=== PATIENT | male | born 1990 | race Two or more races ===

== ENCOUNTER 2019-10-26 14:08 | Emergency (ER) | payer OTHER, SELFPAY ==
[~2019-10-26] VITALS: Ht 182.9 cm; Wt 83.8 kg
[~2019-10-26 14:08] MED LIST: NO CURRENT MEDS
[2019-10-26 14:09] VITALS: BP 130/81
== END 2019-10-26 15:55 | disposition left against medical advice (07) ==
LOC: M ED 14:08
DX: Z53.21 Procedure and treatment not carried out due to patient leaving prior to being seen by health care provider (principal)

== ENCOUNTER → 2019-12-13 | Outpatient (CLI) | payer OTHER ==
[~2019-12-13] MED LIST changes: +PRIL20TA2 PO
== END ==
LOC: M LABSMTC 12:42
PROVIDERS: ATTEND Anesthesiology
DX: Z01.812 Encounter for preprocedural laboratory examination (principal); Z20.828 Contact with and (suspected) exposure to other viral communicable diseases
CPT/HCPCS: C9803; U0003

== ENCOUNTER 2019-12-18 09:02 | Day surgery (SDC) | payer OTHER ==
[~2019-12-18] VITALS: Ht 180.3 cm; Wt 85.7 kg
[2019-12-18] MEDS ORDERED: MIDAZOLAM INJ 2MG/2ML VIAL (J2250 PER 1MG) As Ordered ONE (09:42)
[2019-12-18] MEDS ORDERED: fentaNYL 100 MCG/2 ML INJECTION (J3010) As Ordered ONE ×2 (09:43→11:33)
[2019-12-18] MEDS ORDERED: dexameTHASONE 4 MG/ML 1ML VIAL (J1100 PER 1MG) As Ordered ONE (09:44)
[2019-12-18] MEDS ORDERED: ROCURONIUM BROMIDE 50 MG/5 ML VIAL As Ordered ONE (09:44)
[2019-12-18] MEDS ORDERED: METHYLENE BLUE 0.5% (5MG/ML) 10 ML AMP (PROVAYBLUE) As Ordered ONE (09:44)
[2019-12-18] MEDS ORDERED: EPINEPHrine 1MG/ML INJ 30ML MD-VIAL As Ordered ONE (09:44)
[2019-12-18] MEDS ORDERED: LIDOCAINE W/EPINEPHRINE 1% 20ML VIAL As Ordered ONE (09:44)
[2019-12-18] MEDS ORDERED: LIDOCAINE 2% 100MG/5ML SDV (FOR ANES.) As Ordered ONE (09:45)
[2019-12-18] MEDS ORDERED: ONDANSETRON 4MG/2ML VIAL As Ordered ONE (10:59)
[2019-12-18] MEDS ORDERED: propofoL 200 MG/20 ML VIAL As Ordered ONE (10:59)
[2019-12-18] MEDS ORDERED: SUGAMMADEX SODIUM 500 MG/5 ML VIAL (BRIDION) As Ordered ONE (10:59)
[2019-12-18] MEDS: fentaNYL 100 MCG/2 ML INJECTION (J3010) IV PRN ×2 (11:30→12:02)
[2019-12-18] MEDS: PERCOCET 5MG/325MG TAB PO PRN ×2 (11:30→12:07)
[2019-12-18] MEDS ORDERED: PERCOCET 5MG/325MG TAB As Ordered ONE (11:33)
[2019-12-18] MEDS ORDERED: METOCLOPRAMIDE INJ 10MG/2ML VIAL (J2765 PER 1) IV PRN (11:45)
[2019-12-18] MEDS ORDERED: ONDANSETRON 4MG/2ML VIAL IV PRN (11:45)
[2019-12-18] MEDS ORDERED: LR 1,000 ML IV SCH ×2 (11:45)
[2019-12-18] MEDS ORDERED: ACETAMINOPH W/CODEINE #3 TAB UD PO PRN (11:45)
[2019-12-18 13:13] VITALS: BP 140/92
--- NOTE | 2020-01-10 12:03 | RO ---
DATE OF OPERATION: 12/18/2019 SURGEON: Ritesh Germain MD PREOPERATIVE DIAGNOSIS: Nasal septal deviation. POSTOPERATIVE DIAGNOSIS: Nasal septal deviation. OPERATIVE PROCEDURE: Septoplasty. PROCEDURE IN DETAIL: Under general anesthesia with the patient intubated, the patient was draped in the usual sterile manner. I infiltrated with lidocaine with epinephrine and used pledgets of adrenaline 1:100,000. I made an incision on the left side, elevated the subperichondrial and periosteal planes. I superiorly the quadrangular cartilage from the ethmoid plate. At the maxillary crest, I removed a portion of the maxillary crest , ethmoid plate and vomer which were deviated. Once this was done, the septum was straight. I closed the incision with 3-0 chromic. The patient tolerated the procedure well. ESTIMATED BLOOD LOSS: Less than 20 mL. DISPOSITION: The patient was extubated and transferred to the recovery room in excellent condition. TAI
--- NOTE | 2020-02-06 07:51 | RO ---
DATE OF OPERATION: 12/18/2019 PREOPERATIVE DIAGNOSIS: Nasal septal deviation. POSTOPERATIVE DIAGNOSIS: Nasal septal deviation. OPERATIVE PROCEDURE: Septoplasty. SURGEON: Ritesh Germain MD [employer]URING TECHNICIAN: ANESTHESIA: General. PROCEDURE IN DETAIL: Under general anesthesia with the patient intubated, the patient was draped in the usual sterile manner. I infiltrated with lidocaine with epinephrine and used pledgets of adrenaline 1:100,000. I made an incision on the left side, elevated the subperichondrial and periosteal planes. I superiorly the quadrangular cartilage from the ethmoid plate. At the maxillary crest, I removed a portion of the maxillary crest , ethmoid plate and vomer which were deviated. Once this was done, the septum was straight. I closed the incision with 3-0 chromic. The patient tolerated the procedure well. ESTIMATED BLOOD LOSS: Less than 20 mL. DISPOSITION: The patient was extubated and transferred to the recovery room in excellent condition. TAI
== END 2019-12-18 13:36 | disposition home or self-care (01) ==
LOC: M SDC 09:02
PROVIDERS: ATTEND Otolaryngology
DX: J34.2 Deviated nasal septum (principal); K21.9 Gastro-esophageal reflux disease without esophagitis; F90.9 Attention-deficit hyperactivity disorder, unspecified type; Z91.018 Allergy to other foods; Z79.899 Other long term (current) drug therapy
CPT/HCPCS: 30520; 88300; J1100; J2250; J2405; J3010; Q9968

== ENCOUNTER → 2021-11-17 | Outpatient (CLI) | payer OTHER ==
[~2021-11-17] MED LIST changes: +TRAM50TA2 PO
== END ==
LOC: M OUTALCOH 07:56
PROVIDERS: ATTEND Psychiatry & Neurology Psychiatry
DX: Z02.89 Encounter for other administrative examinations (principal)

== ENCOUNTER 2021-12-07 08:40 | Outpatient (RCR) | payer SELFPAY | END 2021-12-16 | LOC: M OUTALCOH 08:40 | PROVIDERS: ATTEND Psychiatry & Neurology Psychiatry | DX: F10.20 Alcohol dependence, uncomplicated (principal); F12.20 Cannabis dependence, uncomplicated ==